=== PATIENT | male | born 1960 | race Two or more races ===

== ENCOUNTER 2021-05-02 12:26 | Inpatient (IN) | payer MEDICAID, OTHER ==
[~2021-05-02] VITALS: Ht 175.3 cm; Wt 83.1 kg
[2021-05-02 13:28] LABS: Basophils # (auto) 0 10 ^3/uL (0-0.2); Basophils % (auto) 0.5 % (0.0-2.0); Eosinophils # (auto) 0 10 ^3/uL (0-0.8); Eosinophils % (auto) 0.6 % (0.0-7.0); Hematocrit 44.4 % (41.0-53.0); Hemoglobin 14.7 g/dL (13.5-17.5); Lymphocytes # (auto) 0.9 10 ^3/uL (0.4-5.4); Mean Corpuscular Hgb Conc. 33.1 g/dL (32.0-36.0); Mean Corpuscular Volume 90.6 fL (80.0-100.0); Monocytes # (auto) 0.7 10 ^3/uL (0-1.3); Monocytes % (auto) 9.6 % (0.0-12.0); Neutrophils # (auto) 5.5 10 ^3/uL (1.6-8.6); Neutrophils % (auto) 76.3 % (37.0-80.0); Red Cell Distribution Width 12.8 % (11.8-14.3); White Blood Cell 7.2 10^3/uL (4.4-10.8)
[2021-05-02 13:36] LABS: Albumin 3.7 g/dL (3.4-5.0); Anion Gap 6 (5-15); Blood Urea Nitrogen 15 mg/dL (7-18); Calcium 9.3 mg/dL (8.5-10.1); Carbon Dioxide 26 mmol/L (21-32); Chloride 104 mmol/L (98-107); Glucose 92 mg/dL (74-106); Magnesium 2.3 mg/dL (1.6-2.6); Potassium 4.4 mmol/L (3.5-5.1); Sodium 136 mmol/L (136-145)
[2021-05-02 13:41] LABS: Alanine Aminotransferase 32 U/L (16-61); Alkaline Phosphatase 88 U/L (45-117); Aspartate Aminotransferase 40 U/L (15-37); BUN/Creatinine Ratio 12.7; Bilirubin, Total 0.7 mg/dL (0.2-1.0); GFR African American 81 mL/min; GFR Non-African American 67 mL/min; Total Protein 8.2 g/dL (6.4-8.2)
[2021-05-02] MEDS ORDERED: PROMETHAZINE HCL 25 MG/ML 1ML IV PRN (14:30)
[2021-05-02] MEDS ORDERED: cefTRIAXone 1GM/50ML D5W 50 ML IV ONE (14:30)
[2021-05-02] MEDS ORDERED: FUROSEMIDE 20 MG/2 ML VIAL IV ONE (14:30)
[2021-05-02] MEDS ORDERED: LACTULOSE 20Gm/30ML SOLN PO PRN (14:30)
[2021-05-02] MEDS ORDERED: ACETAMINOPHEN 500 MG TAB PO PRN (14:30)
[2021-05-02] MEDS ORDERED: POTASSIUM EFFERVESENT TAB 25 MEQ PO ONE (14:30)
[2021-05-02] MEDS ORDERED: ALBUTEROL SULF HFA 90MCG INH 200DOSE IN PRN (14:30)
[2021-05-02] MEDS ORDERED: traMADol HCL 50 MG TAB PO PRN (14:30)
[2021-05-02] MEDS ORDERED: MORPHINE SULFATE INJECTION 2 MG/ML SYRG IV PRN (14:30)
[2021-05-02] MEDS ORDERED: NITROGLYCERIN 0.4 MG SL TAB SL PRN (14:30)
[2021-05-02] MEDS ORDERED: IOHEXOL 350 MG/ML 100ML IJ ONE (14:34)
[2021-05-02 14:43] LABS: Amylase 62 U/L (25-115); Lipase 158 U/L (73-393)
[2021-05-02] MEDS ORDERED: ENOXAPARIN SOD 40 MG/0.4 ML SYRINGE SC SCH (22:00)
[2021-05-02] MEDS ORDERED: ENOXAPARIN SOD 60 MG/0.6 ML SYRINGE SC SCH (22:00)
[2021-05-02] MEDS ORDERED: BUDESONIDE (INHALATION) 180 MCG IH IN SCH (22:00)
[2021-05-03] MEDS: TEMAZEPAM 15 MG CAP PO PRN (00:07)
[2021-05-03 01:13] LABS: Urine Bacteria FEW /hpf (None Seen); Urine Blood Negative /uL (Negative); Urine Hyaline Cast FEW /lpf (0 - 2); Urine Mucus FEW (None Seen); Urine WBC 1 /hpf (0 - 3)
[2021-05-03 06:36] LABS: Basophils # (auto) 0.1 10 ^3/uL (0-0.2); Basophils % (auto) 0.5 % (0.0-2.0); Eosinophils # (auto) 0.5 10 ^3/uL (0-0.8); Eosinophils % (auto) 3.4 % (0.0-7.0); Hematocrit 40.5 % (41.0-53.0); Hemoglobin 13.3 g/dL (13.5-17.5); Lymphocytes # (auto) 1.2 10 ^3/uL (0.4-5.4); Lymphocytes % (auto) 7.5 % (10.0-50.0); Mean Corpuscular Hgb Conc. 32.9 g/dL (32.0-36.0); Mean Corpuscular Volume 90.9 fL (80.0-100.0); Monocytes # (auto) 0.8 10 ^3/uL (0-1.3); Monocytes % (auto) 5.3 % (0.0-12.0); Neutrophils # (auto) 13.3 10 ^3/uL (1.6-8.6); Neutrophils % (auto) 83.3 % (37.0-80.0); Red Blood Cells 4.45 10^6/uL (4.5-5.90); Red Cell Distribution Width 14.5 % (11.8-14.3); White Blood Cell 15.9 10^3/uL (4.4-10.8)
[2021-05-03 06:56] LABS: Albumin 2.1 g/dL (3.4-5.0); Calcium 8.4 mg/dL (8.5-10.1); Potassium 4.4 mmol/L (3.5-5.1)
[2021-05-03 07:03] LABS: BUN/Creatinine Ratio 23.3; Bilirubin, Total 0.8 mg/dL (0.2-1.0); Total Protein 7.5 g/dL (6.4-8.2)
[2021-05-03] MEDS: cefTRIAXone 1GM/50ML D5W 50 ML IV SCH (09:00)
[2021-05-03] MEDS ORDERED: DexAMETHasone SOD PHOS 10MG/1ML VIAL INJ IV SCH (10:00)
[2021-05-03] MEDS ORDERED: FUROSEMIDE 40 MG/4 ML VIAL IV SCH (10:00)
[2021-05-03] MEDS ORDERED: ASCORBIC ACID 1,000 MG TAB PO SCH (10:00)
[2021-05-03] MEDS ORDERED: ZINC SULFATE 220mg CAP or TAB PO SCH (10:00)
[2021-05-03] MEDS ORDERED: CHOLECALCIFEROL (VITD3) 2,000 UNIT CAP/TAB PO SCH (10:00)
[2021-05-03] MEDS ORDERED: POTASSIUM CHL 20 Meq TABLET PO SCH (10:00)
[2021-05-03] MEDS ORDERED: ENOXAPARIN SOD 40 MG/0.4 ML SYRINGE SC SCH (10:00)
[2021-05-03] MEDS ORDERED: ENALAPRIL MALEATE 2.5 MG TAB PO SCH (10:00)
[2021-05-03] MEDS ORDERED: DOBUTamine 1000MCG/ML 250 ML IV SCH (10:45)
[2021-05-03] MEDS ORDERED: DAPAGLIFLOZIN 5 MG TAB PO ONE (10:45)
[2021-05-03] MEDS ORDERED: diazePAM 5 MG TAB PO ONE (11:00)
[2021-05-03] MEDS: AZITHROMYCIN 500MG/ 250ML 250 ML IV SCH (11:22)
[2021-05-03] MEDS: DOBUTamine 1000MCG/ML 250 ML IV SCH ×2 (13:37→20:29)
[2021-05-03 18:07] VITALS: BP 102/59
[2021-05-03 20:02] VITALS: BP 98/55
[2021-05-03] MEDS: FUROSEMIDE 40 MG/4 ML VIAL IV SCH (21:30)
[2021-05-03 21:47] VITALS: BP 88/48
[2021-05-04] MEDS: DOBUTamine 1000MCG/ML 250 ML IV SCH ×3 (04:18→23:26)
[2021-05-04 04:30] VITALS: BP 115/69
[2021-05-04] MEDS: cefTRIAXone 1GM/50ML D5W 50 ML IV SCH (09:05)
[2021-05-04 09:21] LABS: Basophils # (auto) 0.1 10 ^3/uL (0-0.2); Eosinophils # (auto) 0.1 10 ^3/uL (0-0.8); Eosinophils % (auto) 0.8 % (0.0-7.0); Hematocrit 35.5 % (41.0-53.0); Hemoglobin 11.8 g/dL (13.5-17.5); Lymphocytes # (auto) 0.6 10 ^3/uL (0.4-5.4); Lymphocytes % (auto) 4.8 % (10.0-50.0); Mean Corpuscular Hemoglobin 30.2 pg (28.0-32.0); Mean Corpuscular Hgb Conc. 33.3 g/dL (32.0-36.0); Mean Corpuscular Volume 90.6 fL (80.0-100.0); Monocytes # (auto) 0.7 10 ^3/uL (0-1.3); Monocytes % (auto) 5.2 % (0.0-12.0); Neutrophils # (auto) 11.3 10 ^3/uL (1.6-8.6); Neutrophils % (auto) 88.2 % (37.0-80.0); Nucleated Red Blood Cells % 0.1 %; Red Blood Cells 3.92 10^6/uL (4.5-5.90); Red Cell Distribution Width 14.6 % (11.8-14.3); White Blood Cell 12.9 10^3/uL (4.4-10.8)
[2021-05-04 09:43] LABS: BUN/Creatinine Ratio 31.6; Calcium 8.2 mg/dL (8.5-10.1); Potassium 3.8 mmol/L (3.5-5.1)
[2021-05-04] MEDS ORDERED: ERGOCALCIFEROL 50,000 UNIT(1.25MG) CAP PO SCH (10:00)
[2021-05-04] MEDS ORDERED: APIXABAN 2.5 MG TAB PO SCH (10:00)
[2021-05-04] MEDS ORDERED: DEXTROSE (50%) 50ML SYRG IV PRN (10:15)
[2021-05-04] MEDS: CARVEDILOL 3.125 MG TAB PO SCH ×2 (10:15→23:26)
[2021-05-04] MEDS: FUROSEMIDE 40 MG/4 ML VIAL IV SCH ×2 (10:15→23:26)
[2021-05-04] MEDS: DAPAGLIFLOZIN 5 MG TAB PO SCH (10:15)
[2021-05-04] MEDS: AZITHROMYCIN 500MG/ 250ML 250 ML IV SCH (10:49)
[2021-05-04] MEDS: ACCU-CHEK COMFORT CURVE STRIP VI SCH ×3 (11:32→23:06)
[2021-05-04] MEDS: InsuLIN REG 1unit/0.01ml Soln (100units/ml) SC SCH ×3 (11:39→23:25)
[2021-05-04] MEDS: ALBUTEROL SULF 2.5 MG/0.5ML(0.5%) NEB SOLN NEB SCH ×2 (12:00→22:22)
[2021-05-04 15:39] LABS: Basophils # (auto) 0.1 10 ^3/uL (0-0.2); Basophils % (auto) 0.6 % (0.0-2.0); Eosinophils # (auto) 0.2 10 ^3/uL (0-0.8); Eosinophils % (auto) 1.3 % (0.0-7.0); Hematocrit 38.3 % (41.0-53.0); Hemoglobin 12.3 g/dL (13.5-17.5); Lymphocytes # (auto) 0.9 10 ^3/uL (0.4-5.4); Lymphocytes % (auto) 6.2 % (10.0-50.0); Mean Corpuscular Hemoglobin 29.4 pg (28.0-32.0); Mean Corpuscular Hgb Conc. 32.1 g/dL (32.0-36.0); Mean Corpuscular Volume 91.6 fL (80.0-100.0); Monocytes # (auto) 0.9 10 ^3/uL (0-1.3); Monocytes % (auto) 6.6 % (0.0-12.0); Neutrophils # (auto) 11.8 10 ^3/uL (1.6-8.6); Neutrophils % (auto) 85.3 % (37.0-80.0); Red Blood Cells 4.18 10^6/uL (4.5-5.90); Red Cell Distribution Width 14.4 % (11.8-14.3); White Blood Cell 13.9 10^3/uL (4.4-10.8)
[2021-05-04] MEDS ORDERED: HEPARIN SODIUM (PORCINE) 5000 UNITS/ML 1ML VIAL IV ONE (16:15)
[2021-05-04] MEDS: HEPARIN DRIP/D5W 100UNITS/ML 250 ML IV SCH (16:24)
[2021-05-04 17:24] LABS: INR 1.24 (0.9-1.15)
[2021-05-04 17:37] LABS: Partial Thromboplastin Time 108.2 sec (23.6-33.0)
[2021-05-04 22:54] LABS: INR 1.13 (0.9-1.15); Partial Thromboplastin Time 44.7 sec (23.6-33.0)
[2021-05-05] VITALS (33 sets, daily range): BP systolic 84–147; BP diastolic 55–99
[2021-05-05] MEDS: ALBUTEROL SULF 2.5 MG/0.5ML(0.5%) NEB SOLN NEB SCH ×5 (01:26→23:48)
[2021-05-05] MEDS: TEMAZEPAM 15 MG CAP PO PRN ×2 (01:56→21:29)
[2021-05-05] MEDS: HEPARIN DRIP/D5W 100UNITS/ML 250 ML IV SCH (06:01)
[2021-05-05 06:52] LABS: INR 1.16 (0.9-1.15); Partial Thromboplastin Time 44.2 sec (23.6-33.0)
[2021-05-05 06:54] LABS: Potassium 3.6 mmol/L (3.5-5.1)
[2021-05-05 06:56] LABS: Basophils # (auto) 0.1 10 ^3/uL (0-0.2); Basophils % (auto) 0.5 % (0.0-2.0); Eosinophils # (auto) 0.5 10 ^3/uL (0-0.8); Eosinophils % (auto) 3.8 % (0.0-7.0); Hematocrit 37.5 % (41.0-53.0); Hemoglobin 12.3 g/dL (13.5-17.5); Lymphocytes % (auto) 7.7 % (10.0-50.0); Mean Corpuscular Hemoglobin 29.7 pg (28.0-32.0); Mean Corpuscular Hgb Conc. 32.8 g/dL (32.0-36.0); Mean Corpuscular Volume 90.5 fL (80.0-100.0); Monocytes # (auto) 0.7 10 ^3/uL (0-1.3); Monocytes % (auto) 5.7 % (0.0-12.0); Neutrophils # (auto) 10.4 10 ^3/uL (1.6-8.6); Neutrophils % (auto) 82.3 % (37.0-80.0); Red Blood Cells 4.15 10^6/uL (4.5-5.90); Red Cell Distribution Width 14.3 % (11.8-14.3); White Blood Cell 12.7 10^3/uL (4.4-10.8)
[2021-05-05 07:00] LABS: Calcium 7.8 mg/dL (8.5-10.1)
[2021-05-05] MEDS: InsuLIN REG 1unit/0.01ml Soln (100units/ml) SC SCH ×3 (07:00→23:35)
[2021-05-05] MEDS: ACCU-CHEK COMFORT CURVE STRIP VI SCH ×4 (07:03→22:51)
[2021-05-05] MEDS: DOBUTamine 1000MCG/ML 250 ML IV SCH ×2 (07:53→19:34)
[2021-05-05] MEDS ORDERED: LORazepam 0.5 MG TAB PO PRN (08:00)
[2021-05-05] MEDS: cefTRIAXone 1GM/50ML D5W 50 ML IV SCH (08:13)
[2021-05-05] MEDS: DAPAGLIFLOZIN 5 MG TAB PO SCH (08:14)
[2021-05-05] MEDS: AZITHROMYCIN 500MG/ 250ML 250 ML IV SCH (09:30)
[2021-05-05] MEDS: FUROSEMIDE 40 MG/4 ML VIAL IV SCH (09:30)
[2021-05-05] MEDS: CARVEDILOL 3.125 MG TAB PO SCH ×2 (10:00→21:30)
[2021-05-05] MEDS ORDERED: ANGIOMAX 250 MG VIAL IV ONE (11:57)
[2021-05-05] MEDS ORDERED: HEPARIN SODIUM (PORCINE) 5000 UNITS/ML 1ML VIAL ONE (11:57)
[2021-05-05] MEDS ORDERED: VERAPAMIL 2.5MG/ML INJ 2ML VIAL IV ONE (11:57)
[2021-05-05] MEDS ORDERED: MIDAZOLAM HCL 2MG/2ML 2ml VIAL (1mg/ml) ONE ×2 (11:58→13:28)
[2021-05-05] MEDS ORDERED: SODIUM CHL 0.9% 0 ML ONE (11:58)
[2021-05-05] MEDS ORDERED: fentaNYL CITRATE 100 MCG/2 ML VL ONE (11:58)
[2021-05-05] MEDS ORDERED: IODIXANOL 320MG/ML 100ML BTL IV ONE ×2 (12:07→14:23)
[2021-05-05] MEDS ORDERED: LIDOCAINE 2%HCL (LOCAL ANESTH.) INJ 20ML MDV ONE (12:07)
[2021-05-05] MEDS ORDERED: IOHEXOL 350 MG/ML 100ML IJ ONE ×2 (12:22→13:53)
[2021-05-05] MEDS ORDERED: ADENOSINE 6 MG/2 ML INJ IV ONE ×2 (12:46→12:47)
[2021-05-05] MEDS ORDERED: TICAGRELOR 90 MG TAB ONE (14:06)
[2021-05-05] MEDS ORDERED: FUROSEMIDE 20 MG/2 ML VIAL ONE (14:33)
[2021-05-05] MEDS ORDERED: HEPARIN SODIUM IV SCH (16:30)
[2021-05-05] MEDS ORDERED: D5W 5% IV SCH (16:30)
[2021-05-05 17:13] LABS: Basophils # (auto) 0 10 ^3/uL (0-0.2); Basophils % (auto) 0.2 % (0.0-2.0); Eosinophils # (auto) 0.1 10 ^3/uL (0-0.8); Eosinophils % (auto) 1.2 % (0.0-7.0); Hematocrit 35.2 % (41.0-53.0); Hemoglobin 11.7 g/dL (13.5-17.5); Lymphocytes # (auto) 0.4 10 ^3/uL (0.4-5.4); Mean Corpuscular Hemoglobin 29.9 pg (28.0-32.0); Mean Corpuscular Hgb Conc. 33.2 g/dL (32.0-36.0); Mean Corpuscular Volume 90.2 fL (80.0-100.0); Monocytes # (auto) 0.6 10 ^3/uL (0-1.3); Monocytes % (auto) 5.3 % (0.0-12.0); Neutrophils # (auto) 10.7 10 ^3/uL (1.6-8.6); Neutrophils % (auto) 90.3 % (37.0-80.0); Red Cell Distribution Width 14.6 % (11.8-14.3); White Blood Cell 11.8 10^3/uL (4.4-10.8)
[2021-05-05 17:28] LABS: Albumin 1.7 g/dL (3.4-5.0); Calcium 7.9 mg/dL (8.5-10.1); Potassium 3.6 mmol/L (3.5-5.1)
[2021-05-05 17:31] LABS: BUN/Creatinine Ratio 21.2; Bilirubin, Total 0.7 mg/dL (0.2-1.0); Total Protein 6.7 g/dL (6.4-8.2)
[2021-05-05 17:32] LABS: INR 1.21 (0.9-1.15)
[2021-05-05] MEDS ORDERED: FUROSEMIDE 40 MG/4 ML VIAL IV PRN (18:00)
[2021-05-05] MEDS ORDERED: PATIENTS OWN MEDICATION XX SCH (18:00)
[2021-05-05 18:23] LABS: Partial Thromboplastin Time 99.5 sec (23.6-33.0)
[2021-05-05] MEDS: LORazepam 2MG/ML-1ML VIAL ONE ×2 (18:40→18:49)
[2021-05-05] MEDS: LORazepam 2MG/ML-1ML VIAL IV PRN (18:48)
[2021-05-05] MEDS ORDERED: TEMAZEPAM 15 MG CAP ONE (21:25)
[2021-05-05] MEDS: SACUBITRIL-VALSARTAN 24mg/26mg TAB PO SCH (21:29)
[2021-05-05] MEDS ORDERED: ATORVASTATIN 20 MG TAB PO SCH (22:00)
[2021-05-05] MEDS ORDERED: APIXABAN 2.5 MG TAB PO SCH (22:00)
[2021-05-05] MEDS ORDERED: LORazepam 2MG/ML-1ML VIAL ONE (22:12)
[2021-05-05] MEDS ORDERED: HALOPERIDOL LACTATE 5 MG/ML INJ VIAL ONE (22:27)
[2021-05-05] MEDS ORDERED: HALOPERIDOL LACTATE 5 MG/ML INJ VIAL IM ONE (22:30)
[2021-05-05] MEDS ORDERED: HEPARIN DRIP/D5W 100UNITS/ML 250 ML IV ONE (23:59)
[2021-05-06] VITALS (98 sets, daily range): BP systolic 71–116; BP diastolic 35–75
[2021-05-06] MEDS: HEPARIN DRIP/D5W 100UNITS/ML 250 ML IV SCH (00:23)
[2021-05-06] MEDS ORDERED: fentaNYL CITRATE 100 MCG/2 ML VL IV ONE (00:30)
[2021-05-06] MEDS: DOBUTamine 1000MCG/ML 250 ML IV SCH ×2 (03:07→06:09)
[2021-05-06 04:24] LABS: Basophils # (auto) 0 10 ^3/uL (0-0.2); Basophils % (auto) 0.2 % (0.0-2.0); Eosinophils # (auto) 0.1 10 ^3/uL (0-0.8); Eosinophils % (auto) 0.3 % (0.0-7.0); Hematocrit 30.4 % (41.0-53.0); Hemoglobin 10.1 g/dL (13.5-17.5); Lymphocytes # (auto) 0.5 10 ^3/uL (0.4-5.4); Mean Corpuscular Hgb Conc. 33.3 g/dL (32.0-36.0); Mean Corpuscular Volume 90.1 fL (80.0-100.0); Monocytes # (auto) 0.9 10 ^3/uL (0-1.3); Monocytes % (auto) 5.5 % (0.0-12.0); Neutrophils # (auto) 14.8 10 ^3/uL (1.6-8.6); Red Blood Cells 3.37 10^6/uL (4.5-5.90); Red Cell Distribution Width 14.1 % (11.8-14.3); White Blood Cell 16.3 10^3/uL (4.4-10.8)
[2021-05-06] MEDS ORDERED: LORazepam 2MG/ML-1ML VIAL ONE (04:41)
[2021-05-06] MEDS: LORazepam 2MG/ML-1ML VIAL IV PRN ×2 (04:44→20:15)
[2021-05-06 04:53] LABS: Albumin 1.5 g/dL (3.4-5.0); Calcium 7.5 mg/dL (8.5-10.1); Potassium 3.6 mmol/L (3.5-5.1)
[2021-05-06 04:55] LABS: BUN/Creatinine Ratio 37.9
[2021-05-06 04:59] LABS: Total Protein 5.9 g/dL (6.4-8.2)
[2021-05-06] MEDS ORDERED: DOBUTamine 1000MCG/ML 250 ML IV ONE ×2 (06:07→14:31)
[2021-05-06] MEDS: ACCU-CHEK COMFORT CURVE STRIP VI SCH ×4 (07:00→22:10)
[2021-05-06] MEDS: cefTRIAXone 1GM/50ML D5W 50 ML IV SCH (09:00)
[2021-05-06] MEDS: PHENYLEPHRINE INJ 40 MG in SODIUM CHL 0.9% 246 ML IV SCH (09:45)
[2021-05-06] MEDS: TICAGRELOR 90 MG TAB PO SCH ×2 (10:00→22:00)
[2021-05-06] MEDS: DAPAGLIFLOZIN 5 MG TAB PO SCH (10:00)
[2021-05-06] MEDS ORDERED: PANTOPRAZOLE 40 MG TAB PO SCH (10:00)
[2021-05-06] MEDS: ASPirin 81 mg TAB PO SCH (10:00)
[2021-05-06] MEDS: AZITHROMYCIN 500MG/ 250ML 250 ML IV SCH (10:00)
[2021-05-06] MEDS: SACUBITRIL-VALSARTAN 24mg/26mg TAB PO SCH ×2 (10:00→22:00)
[2021-05-06] MEDS: CARVEDILOL 3.125 MG TAB PO SCH ×2 (10:00→22:00)
[2021-05-06] MEDS ORDERED: ACET-1079 PO (11:19)
[2021-05-06] MEDS: InsuLIN REG 1unit/0.01ml Soln (100units/ml) SC SCH ×3 (11:30→22:00)
[2021-05-06 11:38] LABS: INR 1.25 (0.9-1.15)
[2021-05-06 11:57] LABS: Partial Thromboplastin Time 100.8 sec (23.6-33.0)
[2021-05-06] MEDS ORDERED: cefTRIAXone 1GM/50ML D5W 50 ML IV ONE (12:57)
[2021-05-06] MEDS: ALBUTEROL SULF 2.5 MG/0.5ML(0.5%) NEB SOLN NEB SCH ×2 (13:10→18:05)
[2021-05-06] MEDS ORDERED: diphenhdrAMINE HCL 50 MG/1 ML VL ONE (13:50)
[2021-05-06] MEDS ORDERED: LIDOCAINE 2%HCL (LOCAL ANESTH.) INJ 20ML MDV ONE ×2 (14:07→14:13)
[2021-05-06] MEDS ORDERED: SODIUM CHLORIDE 0.9% 300 ML IV ONE (14:15)
[2021-05-06] MEDS ORDERED: SODIUM CHLORIDE 0.9% 500 ML IV ONE ×2 (18:45→21:00)
[2021-05-06 21:01] LABS: Eosinophils # (auto) 0.1 10 ^3/uL (0-0.8); Red Cell Distribution Width 14.2 % (11.8-14.3)
[2021-05-06 21:08] LABS: Basophils # (auto) 0.1 10 ^3/uL (0-0.2); Basophils % (auto) 0.4 % (0.0-2.0); Eosinophils % (auto) 0.8 % (0.0-7.0); Hematocrit 21.5 % (41.0-53.0); Hemoglobin 7.1 g/dL (13.5-17.5); Lymphocytes # (auto) 0.7 10 ^3/uL (0.4-5.4); Lymphocytes % (auto) 4.1 % (10.0-50.0); Mean Corpuscular Hemoglobin 29.5 pg (28.0-32.0); Mean Corpuscular Hgb Conc. 32.8 g/dL (32.0-36.0); Mean Corpuscular Volume 90.1 fL (80.0-100.0); Monocytes # (auto) 0.9 10 ^3/uL (0-1.3); Monocytes % (auto) 5.2 % (0.0-12.0); Neutrophils # (auto) 15.5 10 ^3/uL (1.6-8.6); Neutrophils % (auto) 89.5 % (37.0-80.0); Red Blood Cells 2.39 10^6/uL (4.5-5.90); White Blood Cell 17.3 10^3/uL (4.4-10.8)
[2021-05-06 21:18] LABS: Albumin 1.5 g/dL (3.4-5.0); Calcium 7.2 mg/dL (8.5-10.1); Potassium 3.1 mmol/L (3.5-5.1)
[2021-05-06 21:20] LABS: INR 1.22 (0.9-1.15); Partial Thromboplastin Time 29.5 sec (23.6-33.0)
[2021-05-06 21:23] LABS: BUN/Creatinine Ratio 54.1; Bilirubin, Total 0.6 mg/dL (0.2-1.0); Total Protein 5.4 g/dL (6.4-8.2)
[2021-05-06] MEDS: PANTOPRAZOLE 40 MG/10 ML VIAL INJ IV SCH (22:09)
[2021-05-06] MEDS: POTASSIUM CHL 20MEQ/100ML 100 ML IV SCH (22:12)
[2021-05-07] VITALS (90 sets, daily range): BP systolic 80–105; BP diastolic 42–69
[2021-05-07] MEDS: ALBUTEROL SULF 2.5 MG/0.5ML(0.5%) NEB SOLN NEB SCH ×4 (00:18→18:09)
[2021-05-07] MEDS: DOBUTamine 1000MCG/ML 250 ML IV SCH ×4 (00:42→18:20)
[2021-05-07] MEDS: POTASSIUM CHL 20MEQ/100ML 100 ML IV SCH ×2 (02:00)
[2021-05-07] MEDS: PHENYLEPHRINE INJ 40 MG in SODIUM CHL 0.9% 246 ML IV SCH ×2 (02:25→17:41)
[2021-05-07] MEDS: LORazepam 2MG/ML-1ML VIAL IV PRN (03:49)
[2021-05-07 06:43] LABS: Basophils # (auto) 0 10 ^3/uL (0-0.2); Basophils % (auto) 0.1 % (0.0-2.0); Eosinophils # (auto) 0.3 10 ^3/uL (0-0.8); Eosinophils % (auto) 1.5 % (0.0-7.0); Hematocrit 27.7 % (41.0-53.0); Hemoglobin 9.3 g/dL (13.5-17.5); Lymphocytes # (auto) 0.9 10 ^3/uL (0.4-5.4); Lymphocytes % (auto) 4.8 % (10.0-50.0); Mean Corpuscular Hemoglobin 29.1 pg (28.0-32.0); Mean Corpuscular Hgb Conc. 33.7 g/dL (32.0-36.0); Mean Corpuscular Volume 86.4 fL (80.0-100.0); Monocytes # (auto) 0.9 10 ^3/uL (0-1.3); Monocytes % (auto) 4.6 % (0.0-12.0); Neutrophils # (auto) 17.4 10 ^3/uL (1.6-8.6); Red Cell Distribution Width 16.3 % (11.8-14.3); White Blood Cell 19.5 10^3/uL (4.4-10.8)
[2021-05-07] MEDS: ACCU-CHEK COMFORT CURVE STRIP VI SCH ×4 (07:00→22:06)
[2021-05-07 07:12] LABS: Albumin 1.6 g/dL (3.4-5.0); BUN/Creatinine Ratio 52.2; Bilirubin, Total 0.7 mg/dL (0.2-1.0); Calcium 7.3 mg/dL (8.5-10.1); Magnesium 2.6 mg/dL (1.6-2.6); Total Protein 5.6 g/dL (6.4-8.2)
[2021-05-07] MEDS: InsuLIN REG 1unit/0.01ml Soln (100units/ml) SC SCH ×4 (08:17→22:07)
[2021-05-07] MEDS: PANTOPRAZOLE 40 MG/10 ML VIAL INJ IV SCH ×2 (08:25→21:31)
[2021-05-07] MEDS: CARVEDILOL 3.125 MG TAB PO SCH ×2 (08:26→22:00)
[2021-05-07] MEDS: TICAGRELOR 90 MG TAB PO SCH ×2 (08:26→22:00)
[2021-05-07] MEDS: ASPirin 81 mg TAB PO SCH (08:26)
[2021-05-07] MEDS: cefTRIAXone 1GM/50ML D5W 50 ML IV SCH (08:26)
[2021-05-07] MEDS: AZITHROMYCIN 500MG/ 250ML 250 ML IV SCH (09:37)
[2021-05-07] MEDS: DAPAGLIFLOZIN 5 MG TAB PO SCH (10:00)
[2021-05-07] MEDS: SACUBITRIL-VALSARTAN 24mg/26mg TAB PO SCH ×2 (10:00→22:00)
[2021-05-07] MEDS ORDERED: MORPHINE SULFATE INJECTION 2 MG/ML SYRG IV PRN (11:00)
[2021-05-08 00:15] VITALS: BP 93/51
[2021-05-08] MEDS: ALBUTEROL SULF 2.5 MG/0.5ML(0.5%) NEB SOLN NEB SCH (00:19)
[2021-05-08 00:30] VITALS: BP 94/59
[2021-05-08 00:45] VITALS: BP 97/51
[2021-05-08] MEDS: LORazepam 2MG/ML-1ML VIAL IV PRN (00:53)
[2021-05-08] MEDS ORDERED: FLUMAZENIL 0.1 MG/ML INJ 10ML MDV IV ONE (01:23)
[2021-05-08] MEDS ORDERED: DOPamine 1600MCG/ML D5W 250 ML IV ONE (01:31)
== END 2021-05-08 01:38 | DRG 169 ==
LOC: ER 12:26 → TELE 14:21 → DOU IN ICU 05-07 06:30
PROVIDERS: ADMIT Internal Medicine; ATTEND Internal Medicine
PROC: 5A09357 Assistance with Respiratory Ventilation, Less than 24 Consecutive Hours, Continuous Positive Airway Pressure (ICD-10-PCS; 2021-05-03)
PROC: 027136Z Dilation of Coronary Artery, Two Arteries with Three Drug-eluting Intraluminal Devices, Percutaneous Approach (ICD-10-PCS; principal; 2021-05-05)
PROC: 5A0221D Assistance with Cardiac Output using Impeller Pump, Continuous (ICD-10-PCS; 2021-05-05)
PROC: 4A023N8 Measurement of Cardiac Sampling and Pressure, Bilateral, Percutaneous Approach (ICD-10-PCS; 2021-05-05)
PROC: 02713ZZ Dilation of Coronary Artery, Two Arteries, Percutaneous Approach (ICD-10-PCS; 2021-05-05)
PROC: 02HA3RJ Insertion of Short-term External Heart Assist System into Heart, Intraoperative, Percutaneous Approach (ICD-10-PCS; 2021-05-05)
PROC: B211YZZ Fluoroscopy of Multiple Coronary Arteries using Other Contrast (ICD-10-PCS; 2021-05-05)
PROC: 30233N1 Transfusion of Nonautologous Red Blood Cells into Peripheral Vein, Percutaneous Approach (ICD-10-PCS; 2021-05-06)
PROC: 5A12012 Performance of Cardiac Output, Single, Manual (ICD-10-PCS; 2021-05-08)
DX: I50.21 Acute systolic (congestive) heart failure (principal); J96.01 Acute respiratory failure with hypoxia; R57.0 Cardiogenic shock; I21.4 Non-ST elevation (NSTEMI) myocardial infarction; J18.9 Pneumonia, unspecified organism; K92.2 Gastrointestinal hemorrhage, unspecified; I24.0 Acute coronary thrombosis not resulting in myocardial infarction; I25.5 Ischemic cardiomyopathy; E66.9 Obesity, unspecified; R00.0 Tachycardia, unspecified; E11.9 Type 2 diabetes mellitus without complications; F41.9 Anxiety disorder, unspecified; E55.9 Vitamin D deficiency, unspecified; R59.9 Enlarged lymph nodes, unspecified; R79.89 Other specified abnormal findings of blood chemistry; E78.5 Hyperlipidemia, unspecified; Z20.822 Contact with and (suspected) exposure to COVID-19; Z83.3 Family history of diabetes mellitus; Z87.891 Personal history of nicotine dependence; Z68.32 Body mass index [BMI] 32.0-32.9, adult
CPT/HCPCS: 33990; 36415; 36600; 71045; 71260; 74177; 80048; 80053; 80061; 81001; 82150; 82270; 82306; 82550; 82728; 82805; 82962; 83036; 83615; 83690; 83735; 83880; 84154; 84443; 84484; 85025; 85379; 85610; 85652; 85730; 86850; 86900; 86901; 86920; 87040; 87081; 87086; 87426; 92920; 92928; 92929; 92950; 93005; 93306; 93460; 93970; 94640; 94660; 96365; 96375; 99152; A4565; C1751; C1887; C9113; G0378; J0153; J0696; J1100; J1644; J1815; J2250; J3480; Q9967